=== PATIENT | female | born 1995 | race Hispanic/Latino ===

== ENCOUNTER 2021-12-01 17:50 | Day surgery (SDC) | payer OTHER ==
[2021-12-01 18:39] VITALS: BMI 26.3
[2021-12-01] MEDS ORDERED: hydrALAZINE 20 MG/ML VIAL SLOW IVP PRN (18:53)
[2021-12-01] MEDS ORDERED: Lactated Ringer's 1,000 ML IV SCH (19:00)
[2021-12-01] MEDS ORDERED: Ondansetron PF 4 MG/2 ML Vial IVP SCH (19:00)
[2021-12-01] MEDS ORDERED: Promethazine HCl 25 MG/ML VIAL IM PRN (19:16)
== END 2021-12-01 21:00 | disposition home or self-care (01) ==
LOC: CSHLD/OP 17:50
PROVIDERS: ATTEND Obstetrics & Gynecology
DX: O21.2 Late vomiting of pregnancy (principal); O99.891 Other specified diseases and conditions complicating pregnancy; R19.7 Diarrhea, unspecified; O99.283 Endocrine, nutritional and metabolic diseases complicating pregnancy, third trimester; E86.0 Dehydration; Z3A.30 30 weeks gestation of pregnancy; Z79.82 Long term (current) use of aspirin; Z79.899 Other long term (current) drug therapy
CPT/HCPCS: 96360; 96361; 96372; 99282; J2405; J2550

== ENCOUNTER 2022-01-27 12:22 | Inpatient (IN) | payer MEDICAID, OTHER ==
[2022-01-27 12:59] VITALS: BMI 27.4
[2022-01-27] MEDS ORDERED: hydrALAZINE 20 MG/ML VIAL SLOW IVP PRN ×2 (13:58→17:49)
[2022-01-27] MEDS ORDERED: Ondansetron PF 4 MG/2 ML Vial IVP SCH (14:15)
[2022-01-27] MEDS ORDERED: Lactated Ringer's 1,000 ML IV SCH ×2 (14:15→18:00)
[2022-01-27] MEDS ORDERED: Promethazine HCl 25 MG, Admixture Fee 1 EACH in Sodium Chloride 0.9% 50 ML IVPB PRN (16:38)
[2022-01-27] MEDS ORDERED: Lidocaine 1% (PF) 30 ML VIAL SC PRN (17:49)
[2022-01-27] MEDS ORDERED: Ondansetron PF 4 MG/2 ML Vial IVP PRN (17:49)
[2022-01-27] MEDS ORDERED: Ibuprofen 800 MG TAB PO PRN (17:49)
[2022-01-27] MEDS ORDERED: Misoprostol 200 MCG TAB PR PRN (17:49)
[2022-01-27] MEDS ORDERED: Carboprost 250 MCG/ML AMP IM PRN (17:49)
[2022-01-27] MEDS ORDERED: Methylergonovine 0.2 MG/ML VIAL IM PRN (17:49)
[2022-01-27] MEDS ORDERED: Acetaminophen 500 MG TAB PO PRN (17:49)
[2022-01-27] MEDS ORDERED: NS w/ Oxytocin 30 units 500 ML IV SCH ×2 (18:00)
[2022-01-27 19:24] LABS: Hemoglobin 11.6 g/dL (12.0-15.5); Mean Corpuscular HGB CONC 33.5 g/dL (32.0-36.0); Mean Corpuscular Hemoglobin 28.7 pg (27.0-33.0); Mean Corpuscular Volume 85.6 fl (81.6-98.3); Mean Platelet Volume 10.1 fl (7.4-10.4); Platelet Count 276 10x3/uL (150-450); Red Blood Cell (RBC) Count 4.04 10x6/uL (3.90-5.03)
[2022-01-27] MEDS: Butorphanol Tartrate 1 MG/ML VIAL SLOW IVP PRN (19:44)
[2022-01-27 19:55] LABS: Syphilis Antibody Nonreactive (Nonreactive); Syphilis Antibody Index 0.02 S/CO (<1.00 Non-Reactive)
[2022-01-27 19:57] LABS: Hep B Surf Ag Non-Reactive S/CO (NonReactive)
[2022-01-27 20:01] LABS: HBSAg Index 0.19 S/CO (0-0.99)
[2022-01-28] MEDS ORDERED: Methylergonovine 0.2 MG/ML VIAL ONE (02:23)
[2022-01-28] MEDS ORDERED: Misoprostol 200 MCG TAB ONE (02:23)
[2022-01-28] MEDS ORDERED: Carboprost 250 MCG/ML AMP ONE (02:23)
[2022-01-28] MEDS ORDERED: Tranexamic Acid 1,000 MG/10 ML VIAL ONE (02:25)
[2022-01-28] MEDS: Butorphanol Tartrate 1 MG/ML VIAL SLOW IVP PRN (02:45)
[2022-01-28] MEDS ORDERED: Fentanyl 2 mcg/Bup 0.1% Cadd 100 ML ONE (04:49)
[2022-01-28] MEDS ORDERED: hydrALAZINE 20 MG/ML VIAL SLOW IVP PRN (05:56)
[2022-01-28] MEDS ORDERED: Milk Of Magnesia 30 ML UDCUP PO PRN (05:56)
[2022-01-28] MEDS ORDERED: Ondansetron PF 4 MG/2 ML Vial IVP PRN (05:56)
[2022-01-28] MEDS ORDERED: Bisacodyl 10 MG SUPP PR PRN (05:56)
[2022-01-28] MEDS ORDERED: Lanolin Ointment 7 GM TUBE TOP PRN (05:56)
[2022-01-28] MEDS ORDERED: diphenhydrAMINE 25 MG CAP PO PRN (05:56)
[2022-01-28] MEDS ORDERED: Benzocaine-Menthol 82.5 ML CAN TOP PRN (05:56)
[2022-01-28] MEDS ORDERED: Preparation H Ointment 28 GM TUBE PR PRN (05:56)
[2022-01-28] MEDS ORDERED: Promethazine HCl 25 MG/ML VIAL IM PRN (05:56)
[2022-01-28] MEDS: Ibuprofen 800 MG TAB PO SCH ×3 (06:41→21:20)
[2022-01-28 06:57] LABS: Manual Diff?? YES; Mean Corpuscular HGB CONC 33.1 g/dL (32.0-36.0); Mean Corpuscular Hemoglobin 28.7 pg (27.0-33.0); Mean Corpuscular Volume 86.7 fl (81.6-98.3); Mean Platelet Volume 10.1 fl (7.4-10.4); Platelet Count 331 10x3/uL (150-450); RBC Distribution Width 13.1 % (11.5-14.5); Red Blood Cell (RBC) Count 3.83 10x6/uL (3.90-5.03); White Blood Cell (WBC) Count 25.1 10x3/uL (3.5-10.5)
[2022-01-28 06:58] LABS: MDiff Complete? YES
[2022-01-28 07:47] LABS: Band 12 % (5-11); Lymphocytes 3 % (21-51); Monocytes 4 % (0-10); Neutrophil 79 % (42-75); Reactive Lymphocytes 2 % (0-10)
[2022-01-28 07:48] LABS: Platelet Morphology Comment Appears Adequate
[2022-01-28] MEDS: Prenatal Vitamin 1 TAB PO SCH (09:13)
[2022-01-28] MEDS: Ferrous Sulfate 325 MG TAB PO SCH ×2 (09:13→19:00)
[2022-01-28] MEDS: Docusate 100 MG CAP PO SCH ×2 (09:13→21:21)
[2022-01-28] MEDS ORDERED: traMADol HCl 50 MG TAB PO SCH (22:30)
[2022-01-29 05:06] LABS: #Eosinphils 0.3 10x3/uL (0.0-0.5); #Monocytes 1.5 10x3/uL (0.0-1.1); #Neutrophils 10.4 10x3/uL (1.5-8.4); %Basophils 0.1 % (0.0-2.0); %Eosinophils 1.6 % (0.0-6.0); %Lymphocytes 23.7 % (18.0-47.0); %Neutrophils 64.6 % (40.0-75.0); Hemoglobin 8.7 g/dL (12.0-15.5); Mean Corpuscular HGB CONC 33.1 g/dL (32.0-36.0); Mean Corpuscular Hemoglobin 29.1 pg (27.0-33.0); Mean Platelet Volume 9.9 fl (7.4-10.4); Platelet Count 285 10x3/uL (150-450); RBC Distribution Width 13.3 % (11.5-14.5); Red Blood Cell (RBC) Count 2.99 10x6/uL (3.90-5.03)
[2022-01-29] MEDS: Ibuprofen 800 MG TAB PO SCH ×3 (05:19→23:49)
[2022-01-29] MEDS ORDERED: Boostrix 0.5 ML (Tdap) VIAL IM ONE (05:56)
[2022-01-29] MEDS: Ferrous Sulfate 325 MG TAB PO SCH ×2 (08:30→17:46)
[2022-01-29] MEDS: Prenatal Vitamin 1 TAB PO SCH (08:30)
[2022-01-29] MEDS: Docusate 100 MG CAP PO SCH ×2 (08:30→23:49)
[2022-01-30] MEDS ORDERED: Ibuprofen 800 MG TAB PO SCH (08:00)
[2022-01-30] MEDS: Ferrous Sulfate 325 MG TAB PO SCH (08:36)
[2022-01-30] MEDS: Docusate 100 MG CAP PO SCH (08:36)
[2022-01-30] MEDS: Prenatal Vitamin 1 TAB PO SCH (08:36)
[2022-01-30 09:43] VITALS: BP 111/58; TEMP 98.5
== END 2022-01-30 13:20 | disposition home or self-care (01) | DRG 806 ==
LOC: CSHLD/OP 12:22 → CSHLD 19:04 → CSHPP 01-28 06:19
PROVIDERS: ADMIT Obstetrics & Gynecology; ATTEND Obstetrics & Gynecology
PROC: 10E0XZZ Delivery of Products of Conception, External Approach (ICD-10-PCS; principal; 2022-01-28)
PROC: 0KQM0ZZ Repair Perineum Muscle, Open Approach (ICD-10-PCS; 2022-01-28)
DX: O70.1 Second degree perineal laceration during delivery (principal); O72.1 Other immediate postpartum hemorrhage; Z37.0 Single live birth; Z3A.39 39 weeks gestation of pregnancy; Z20.822 Contact with and (suspected) exposure to COVID-19; O71.82 Other specified trauma to perineum and vulva
CPT/HCPCS: 36415; 85025; 85027; 86780; 86850; 86900; 86901; 87340; J0595; J2210; J2405; J2550; J2590; U0003; U0005